=== PATIENT | female | born 1960 | race Caucasian/White ===

== ENCOUNTER → 2019-04-07 14:05 | Outpatient (CLI) | payer BC, SELFPAY ==
--- NOTE | ~2019-04-07 | XR_ITS ---
EXAMINATION: XR shoulder RT min 2V DATE: 04/07/2019 14:27 INDICATION: Right shoulder pain. TECHNIQUE: 4 views of right shoulder were obtained. COMPARISON: None. FINDINGS: Bone alignment is normal. No fracture. There is mild osteoarthritis of glenohumeral joint. Acromioclavicular joint is normal. IMPRESSION: 1. Mild glenohumeral joint osteoarthritis. Reviewed, dictated and finalized at location A. WAY ADMINISTRATIVE ENGINEER
== END ==
PROVIDERS: PCP Family Medicine; Visit Provider Physician Assistant
DX: M19.011 Primary osteoarthritis, right shoulder (principal)
CPT/HCPCS: 73030

== ENCOUNTER 2023-01-30 00:40 | Day surgery (SDC) | payer BC, SELFPAY ==
[2023-01-11 13:53] VITALS: BMI 28.0
--- NOTE | 2023-01-26 10:24 | SUR.PREOP ---
Patient called regarding upcoming procedure. Reviewed preop instructions, appointment times, and procedure prep.
[2023-01-30 09:31] VITALS: BP 121/80; PULSE 73; RESP 18; TEMP 36.1; O2SAT 100
[2023-01-30] MEDS: LACTATED RINGERS 1,000 ML 150 ML IV CONT (09:40)
--- NOTE | 2023-01-30 10:21 | WPDANESEPPF ---
Anes - Initial Pre Proc Eval Procedure: Operation Date: 01/30/23 10:30 Proposed Procedures p Screening Colonoscopy - Reji Murray MD Date/Time: 01/30/23 10:21 Surgeon: Reji Murray MD Pre Op Diagnosis: neoplasm screening Patient Data Age: 62 Gender: F Height: 1.63 m Weight: 72.5 kg Last Vital Signs Temp 36.1 C L 01/30/23 09:31 Pulse 73 01/30/23 09:31 Resp 18 01/30/23 09:31 BP 121/80 01/30/23 09:31 Pulse Ox 100 01/30/23 09:31 O2 Del Method Room Air 01/30/23 09:31 Allergies Allergy/AdvReac Type Severity Reaction Status Date / Time No Known Allergies Allergy Mild Verified 01/30/23 09:29 Home Medications Medication Instructions Recorded Confirmed Type fluoxetine 20 mg capsule 20 mg PO DAILY 04/02/19 01/11/23 History trazodone 50 mg tablet 100 mg PO QHS 09/13/20 01/11/23 History lisinopril 30 mg tablet 30 mg PO DAILY #90 tabs 06/12/22 01/11/23 Rx lamotrigine 25 mg tablet 25 mg PO DAILY 11/16/22 01/11/23 History Patient hx anesthesia problems: none Family hx anesthesia problems: none Results Review: All pre-operative results and documents have been reviewed as part of the pre-operative evaluation. [facility] Past Medical History Medical History Anxiety Hypertension Normal colonoscopy (~2006) Surgical History Surgical History Hx of appendectomy Hx of cholecystectomy Family History Family History Other Family history of Parkinson's disease Family history of coronary artery disease Family history of malignant neoplasm of breast in first degree relative Family history of pancreatic cancer Family history of rheumatoid arthritis Hypertension Social History Social History Smoking status: Never smoker Second hand tobacco smoke exposure: No Alcohol intake: current Drinks per week: 10 Substance use: never Substance use type: does not use Lack of Transportation: No Lack of Food: Never True Current Housing: I Have Housing Concerned About Future Housing: No Difficulty Paying Gas/Electric Bills: No Difficulty Paying for Meds: No Currently Unemployed: No Education: Bachelor's Degree Difficulty w/ Childcare or Family Care: No Living arrangements: with family Gender identity (if verbalized by the patient): Female Sexual Orientation (if Verbalized by the Patient): Straight or Heterosexual Spiritual care concerns: No Agree to blood products: Yes Anes - Eval Final PreProcedure Day of Procedure 01/30/23 10:21 Patient weight: overweight Heart: regular rate and rhythm Lungs: clear to auscultation Airway: Mallampati scale class II Neurological: alert and oriented Last oral intake: >/= 8 hours ASA classification: II Emergent: no Anesthetic plan: proceed Anesthesia type and monitoring: general GIVS and standard monitoring Results Review: All pre-operative results and documents have been reviewed as part of the pre-operative evaluation. Informed Consent: The patient's anesthetic plan and its attendant risks and benefits were discussed with the patient/family/POA. Questions were solicited and answers provided to the satisfaction of the patient/family/POA.
--- NOTE | 2023-01-30 10:22 | PM.HPGS ---
History of Present Illness History of Present Illness Consent: Risks, benefits, and alternatives have been discussed and questions answered. Patient agrees to proceed with procedure. Chief complaint: neoplasm screening Narrative: Shruthi Cohen is a 62 year old female Presents for screening colonoscopy. Patient's current weight appetite and bowel movements are normal. Patient denies abdominal pain. She has had no bleeding. Family history noncontributory. Review of Systems Review of Systems: Review of systems noncontributory. [facility] Past Medical History Medical History (Updated 01/30/23 @ 10:23 by Reji Murray MD) Anxiety Hypertension Normal colonoscopy (~2006) Surgical History Surgical History Hx of appendectomy Hx of cholecystectomy Family History Family History Other Family history of Parkinson's disease Family history of coronary artery disease Family history of malignant neoplasm of breast in first degree relative Family history of pancreatic cancer Family history of rheumatoid arthritis Hypertension Social History Social History Smoking status: Never smoker Second hand tobacco smoke exposure: No Alcohol intake: current Drinks per week: 10 Substance use: never Substance use type: does not use Lack of Transportation: No Lack of Food: Never True Current Housing: I Have Housing Concerned About Future Housing: No Difficulty Paying Gas/Electric Bills: No Difficulty Paying for Meds: No Currently Unemployed: No Education: Bachelor's Degree Difficulty w/ Childcare or Family Care: No Living arrangements: with family Gender identity (if verbalized by the patient): Female Sexual Orientation (if Verbalized by the Patient): Straight or Heterosexual Spiritual care concerns: No Agree to blood products: Yes Meds Home Medications and Allergies Home Medications Medication Instructions Recorded Confirmed Type fluoxetine 20 mg capsule 20 mg PO DAILY 04/02/19 01/11/23 History trazodone 50 mg tablet 100 mg PO QHS 09/13/20 01/11/23 History lisinopril 30 mg tablet 30 mg PO DAILY #90 tabs 06/12/22 01/11/23 Rx lamotrigine 25 mg tablet 25 mg PO DAILY 11/16/22 01/11/23 History Allergies Allergy/AdvReac Type Severity Reaction Status Date / Time No Known Allergies Allergy Mild Verified 01/30/23 09:29 Vital Signs Vital Signs - 24 hr 01/30/23 09:31 Temperature 97.0 F L Pulse Rate 73 Respiratory Rate 18 Blood Pressure 121/80 Pulse Oximetry 100 Oxygen Delivery Room Air Exam Narrative: Physical exam reveals patient to be alert. Vital signs stable. HEENT exam is unremarkable. Patient is anicteric. Lungs are clear to auscultation and percussion. Heart is without murmur or extra sounds. Abdomen bowel sounds are present soft nontender with no organomegaly. Digital external rectal exam normal. Assessment and Plan Assessment and plan (1) Encounter for screening colonoscopy: Code(s): Z12.11 - Encounter for screening for malignant neoplasm of colon Status: Acute Assessment and Plan: Patient presents today for screening colonoscopy. She appears to be at average risk for colon polyps. Further recommendations may be given after endoscopy.
[2023-01-30] MEDS: SIMETHICONE ORAL SUSPENSION 20 MG/0.3 ML 30 ML BOTTLE 0.6 ML IRRIGATION (11:19)
[2023-01-30 11:31] VITALS: BP 118/73; PULSE 68; RESP 23; O2SAT 98
[2023-01-30 11:35] VITALS: BP 122/67; PULSE 67; RESP 25; O2SAT 98
[2023-01-30 11:45] VITALS: BP 138/75; PULSE 65; RESP 20; O2SAT 100
== END 2023-01-30 11:53 | disposition home or self-care (01) ==
PROVIDERS: PCP Family Medicine; Visit Provider Internal Medicine Gastroenterology
PROC: 0DJD8ZZ Inspection of Lower Intestinal Tract, Via Natural or Artificial Opening Endoscopic (ICD-10-PCS; CPT 45378; principal; 2023-01-30 10:30)
DX: Z12.11 Encounter for screening for malignant neoplasm of colon (principal); D12.2 Benign neoplasm of ascending colon; K64.8 Other hemorrhoids; K57.30 Diverticulosis of large intestine without perforation or abscess without bleeding; I10 Essential (primary) hypertension; F41.9 Anxiety disorder, unspecified
CPT/HCPCS: 45381; 45380; 88305; J2704; J7120

== ENCOUNTER 2024-05-02 00:10 | Day surgery (SDC) | payer OTHER, SELFPAY ==
[2024-04-24 11:29] VITALS: BMI 25.3
--- OUTSIDE RECORDS SUMMARY | 2024-05-02 00:15 | XMS_ITS | Encounter Summary ---
Author Organization [employer] Address 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
--- OUTSIDE RECORDS SUMMARY | 2024-05-02 00:15 | XMS_ITS | Encounter Summary ---
Author Organization [employer] [facility] Address 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
--- OUTSIDE RECORDS SUMMARY | 2024-05-02 00:15 | XMS_ITS | Encounter Summary ---
Author Organization [employer] [facility] Address 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
--- OUTSIDE RECORDS SUMMARY | 2024-05-02 00:15 | XMS_ITS | Clinical Summary ---
Author Organization [facility] Address [address] [place] [address] Care Team Providers Care Evp Name Role Phone Ida Silverio MD Primary Care Provider [phone] Sarahi Sanchez MD Unavailable [phone] Allergies No known active allergies Medications ALPRAZolam (XANAX) 0.25 mg tablet Take 1 tablet (0.25 mg total) by mouth 3 (three) times a day as needed 2 Active FLUoxetine (PROzac) 20 mg capsule Take 1 capsule (20 mg total) by mouth every morning 2 Active lamoTRIgine (LaMICtal) 100 mg tablet Take 2 tablets (200 mg total) by mouth every morning 2 Active traZODone (DESYREL) 50 mg tablet Take 1 tablet (50 mg total) by mouth nightly 2 Active acetaminophen 500 mg capsuleIndicati ons:Pain Take 2 capsules (1,000 mg total) by mouth every 6 (six) hours 4 Active Additional Information Patient not taking.Reported on 06/26/2023 apixaban (ELIQUIS) 2.5 mg tablet Take 1 tablet (2.5 mg total) by mouth 2 (two) times a day for 21 days 42 tablet 4 Active Additional Information Patient not taking.Reported on 04/23/2023 lisinopriL (PRINIVIL,ZESTR IL) 30 mg tablet Take 1 tablet (30 mg total) by mouth daily 4 Active Active Problems Problem Noted Date Diagnosed Date Well woman exam with routine gynecological exam 06/27/2023 Colon polyp 03/13/2023 Hyponatremia 11/19/2021 Assessment & Plan (11/20/2021 9:06 AM CDT): P/w Na 122 with tinging in her bilateral hands and jitteriness in her legs. Symptoms resolved with 250cc NS and Na improvement to 130. Nicolasa <20, Sosm 258, Uosm 86, Cl 95, cortisol 9, TSH 3.44. Hypovolemic on exam. Did not drink water and hydrated with beer. Consistent with hypovolemic hyponatremia -IVF -Asymptomatic and Na normalized. Ok for discharged MDD (major depressive disorder) 11/19/2021 Assessment & Plan (11/19/2021 2:29 PM CDT): Cont home fluoxetine, lamotrigine, xanax PRN, and trazodone PRN Hypertension 11/19/2021 Assessment & Plan (11/19/2021 2:29 PM CDT): Cont lisinopril Alcohol abuse 11/19/2021 Assessment & Plan (11/20/2021 9:06 AM CDT): Reports drinking up to 5 beers/day. No history or current signs of withdrawal -Counseled cessation Surgical History Surgery Date Site/Laterality Comments SECTION x 2 (1996, 2000) CHOLECYSTECTOMY 02/13/1984 - 02/11/1985 COLECTOMY PARTIAL / TOTAL 02/12/2022 - 02/11/2023 Medical History Medical History Date Comments Hypertension Depression Anxiety History of panic attacks Diverticulosis Polyp of ascending colon Family History Medical History Relation Name Comments Breast cancer Father's Sister Breast cancer Maternal Grandmother Breast cancer Mother's Sister Relation Name Status Comments Father's Sister Maternal Grandmother Mother's Sister Social History Tobacco Use Types Packs/Day Years Used Date Smoking Tobacco: Former Cigarettes 1 - 1982 Passive Smoke Exposure: Past Smokeless Tobacco: Never [facility] Utilities Answer Date Recorded In the past 12 months has [employer], gas, oil, or water [employer] threatened to shut off services in your home? No 04/05/2023 Social Connection and Isolat ion Panel [NHANES] Answer Date Recorded In a typical week, how many times do you talk on the phone with family, friends, or neighbors? More than three times a week 04/05/2023 How often do you get togethe r with friends or relatives? More than three times a week 04/05/2023 How often do you attend chur ch or gnosticist services? Never 04/05/2023 Do you belong to any clubs o r organizations such as voodoo groups, unions, fraternal or athletic groups, or school groups? No 04/05/2023 How often do you attend meet ings of the clubs or organizations you belong to? Never 04/05/2023 Are you , , di vorced, , never , or living with a partner? 04/05/2023 AUDIT-C Answer Date Recorded Q1: How often do you have a drink containing alc ohol? Monthly or less 06/26/2023 Q2: How many drinks containi ng alcohol do you have on a typical day when you are drinking? 10 or more 06/26/2023 Frequency of Binge Drinking Not on file 06/12 Overall Financial Resource Strain (CARDIA) Answe r Date Recorded How hard is it for you to pa y for the very basics like food, housing, medical care, and heating? Not very hard 04/05/2023 Hunger Vital Sign Answer Date Recorded Within the past 12 months, y ou worried that your food would run out before you got the money to buy more. Never true 04/05/19 24 Within the past 12 months, t he food you bought just didn't last and you didn't have money to get more. Never true 04/05/2023 PRAPARE - Transportation Answer Date Re corded In the past 12 months, has l ack of transportation kept you from medical appointments or from getting medications? No 03/16 In the past 12 months, has l ack of transportation kept you from meetings, work, or from getting things needed for daily living? No 04/05/2023 Housing Stability Vital Sign Answer Yao e Recorded In the last 12 months, was t here a time when you were not able to pay the mortgage or rent on time? No 04/05/2023 In the last 12 months, how many places have you lived? 1 04/05/2023 In the last 12 months, was t here a time when you did not have a steady place to sleep or slept in a assisted (including now)? No 04/05/2023 Personal Safety Answer Date Recorded Have you ever been in or are you currently in a harmful physical or emotional relationship or is someone making you feel afraid or unsafe? Denies 04/04/2023 Comments No Sex and Gender Information Value Date Recorded Sex Assigned at Not on file Legal Sex Female 4:33 PM TAR POT MAN Gender Identity Not on file Sexual Orientation Not on file Obstetrics History Para Term AB IAB SAB Ectopic Multiple Livin g Live Births 2 2 2 Date Outcome GA Total Labor Labor/2nd/3rd Weight Sex Type Anes PTL Maria Victoria A1 A5 Name Clin 1995 Term M C-Sec tion Larry 2000 Term F C-Sec tiportillo King Last Filed Vital Signs Vital Sign Reading Time Taken Comments Blood Pressure 128/80 06/26/2023 11:49 AM CDT Pulse 87 04/23/2023 11:12 AM CDT Temperature 36.3 C (97.4 F) 04/23/2023 11:12 AM CDT Respiratory Rate 20 04/16/2023 12:30 PM TAR POT MAN Oxygen Saturation 100% 04/23/2023 11:12 AM CDT Inhaled Oxygen Concentration - - Weight 70.3 kg (155 lb) 06/26/2023 11:49 AM CDT Height 162.6 cm (5' 4 ) 06/26/2023 11:49 AM CDT Body Mass Index 26.61 06/26/2023 11:49 AM CDT Plan of Treatment Health Maintenance Due Date Last Done Comments Cervical Cancer Screening 1961 Colon Cancer Screening-Colonoscopy 1961 Depression Screening 1961 Hepatitis C Screening 1961 DTaP/Tdap/Td Vaccine (1 - Tdap) 1972 Hepatitis B Screening 07/05/1979 Zoster Vaccine (1 of 2) 07/05/2011 Influenza Vaccine (#1) 2023 11/25/2016, 2015 Breast Cancer Screening-Mammogram 02/20/2024 02/19/2023, 11/24/2021, 11/18/2018, Additional history exists Regular Well Visit/Exam 18-64 06/25/2024 06/26/2023 Pneumococcal vaccine <65 Aged Out No longer eligible based on patient's age to complete this topic Procedures Procedure Name Priority Date/Time Associated Diagnosis Comments SCREENING MAMMOGRAM BILATERAL W DYLAN Schedule Routine, Read Routine (OP Routine) 02/19/2023 11:27 AM TAR POT MAN Screening mammogram, encounter for from Last 3 Months or Most Recently Relevant to Health Maintenance Results * Screening Mammogram Bilateral W Dylan (02/19/2023 11:27 AM TAR POT MAN) Anatomical Region Laterality Modality Breast Bilateral Mammography Narrative 02/19/2023 11:37 AM TAR POT MAN Examination: Screening Mammogram Bilateral W Dylan: 02/19/23 Clinical: Screening mammogram, encounter for. Prior Study Comparisons: Comparison was made to the prior available relevant studies at the time of interpretation. Findings: Bilateral No significant masses, malignant type calcifications, skin thickening, nipple retraction, or significant lymphadenopathy is noted in either breast. The CAD review showed no significant findings. The breasts have scattered areas of fibroglandular density. The patient will be notified of results by letter. Impression: BI-RADS ATLAS category (overall): 1 - Negative There is no mammographic evidence of malignancy. Routine Screening Mammogram in 1 Yr is recommended for bilateral Overall Assessment: 1 - Negative us Self Screening Mammogram IMG MAMMO PROCEDURES Fi nal Result from Last 3 Months or Most Recently Relevant to Health Maintenance Insurance [employer] ACCESS [facility] Advance Directives For more information, please contact: [phone] * Full Code (Latest Code Status on File) Date Activated Date Inactivated Comments 04/04/2023 3:27 PM 04/16/2023 10:26 PM * Full Code Date Activated Date Inactivated Comments 11/19/2021 2:11 PM 11/20/2021 3:07 PM Care Teams Evp Relationship Specialty Start Date End Date Ida Silverio MD PCP - General 10/31/17 Sarahi Sanchez MD Consulting Physician Surgery 04/06/23
--- OUTSIDE RECORDS SUMMARY | 2024-05-02 00:15 | XMS_ITS | Encounter Summary ---
Author Organization [employer] Address 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
--- OUTSIDE RECORDS SUMMARY | 2024-05-02 00:15 | XMS_ITS | Encounter Summary ---
Author Organization [employer] [facility] Address 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
--- OUTSIDE RECORDS SUMMARY | 2024-05-02 00:15 | XMS_ITS | Clinical Summary ---
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 Gender Identity Not on file Sexual Orientation Not on file Plan of Treatment Health Maintenance Due Date Last Done Comments DTAP/TDAP/TD VACCINES (1 - Tdap) 1980 PAP SMEAR 1982 CERVICAL CANCER SCREENING 07/05/1991 HPV/Cotest 07/05/1991 PAP SMEAR 07/05/1991 BREAST CANCER SCREENING 2001 COLORECTAL SCREENING 2006 Colorectal Cancer Screening 2006 FIT-DNA Q 3 years 2006 FIT/FOBT Q 1 year 2006 Flex Sig/CT Colonography Q 5 years 2006 ZOSTER VACCINE (1 of 2) 07/05/2011 INFLUENZA VACCINE (#1) 2023 RSV VACCINE (60+ or ) (1 - 1-dose 75+ series) 2036 PNEUMOCOCCAL VACCINE 0-49 YEARS Aged Out No longer eligible based on patient's age to complete this topic
--- OUTSIDE RECORDS SUMMARY | 2024-05-02 00:15 | XMS_ITS | Referral Summary ---
Author Organization [facility] Address [address] [place] [address] Care Team Providers Care Elementary Principal Name Role Phone Ida Silverio MD Primary Care Provider [phone] Sarahi Sanchez MD Unavailable [phone] Allergies No known active allergies Medications ALPRAZolam [...] or current signs of withdrawal -Counseled cessation Social History Tobacco Use Types Packs/Day Years Used Date Smoking Tobacco: Former Cigarettes 1 - 1982 Passive Smoke Exposure: Past Smokeless Tobacco: Never [employer] Answer Date Recorded In the past 12 months has [employer], [employer], or water [employer] threatened to shut off services in your [...] week 04/05/2023 How often do you attend [facility] or muslim services? Never 04/05/2023 Do you belong to any clubs o r organizations such as episcopal groups, unions, fraternal or athletic groups, or [...] place to sleep or slept in a longterm (including now)? No 04/05/2023 Personal Safety Answer Date Recorded Have you ever been in or are you currently in a harmful physical or emotional relationship or is someone making you feel afraid or unsafe? 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 Gender Identity Not on file Sexual Orientation Not on file Last Filed Vital Signs Vital Sign Reading Time Taken Comments Blood Pressure 128/80 06/26/2023 11:49 AM CDT Pulse 87 04/23/2023 11:12 AM CDT Temperature 36.3 C (97.4 F) 04/23/2023 11:12 AM CDT Respiratory Rate 20 04/16/2023 12:30 PM THERAPEUTIC RECREATION LEADER Oxygen Saturation 100% 04/23/2023 11:12 AM CDT Inhaled Oxygen Concentration - - Weight 70.3 kg (155 lb) 06/26/2023 11:49 AM CDT Height 162.6 cm (5' 4 ) 06/26/2023 11:49 AM CDT Body Mass Index 26.61 06/26/2023 11:49 AM CDT Plan of Treatment Not on file Procedures Procedure Name Priority Date/Time Associated Diagnosis Comments SCREENING MAMMOGRAM BILATERAL W DYLAN Schedule Routine, Read Routine (OP Routine) 02/19/2023 11:27 AM THERAPEUTIC RECREATION LEADER Screening mammogram, encounter for from Last 3 Months or Most Recently Relevant to Health Maintenance Results * Screening Mammogram Bilateral W Dylan (02/19/2023 11:27 AM THERAPEUTIC RECREATION LEADER) Anatomical Region Laterality Modality Breast Bilateral Mammography Narrative 02/19/2023 11:37 AM THERAPEUTIC RECREATION LEADER Examination: Screening Mammogram Bilateral W Dylan: 02/19/23 [...] Most Recently Relevant to Health Maintenance Insurance Vivaty [place] Vivaty [place] [facility] Member Subscriber Plan / Payer (Ef fective 2019-Present) Name:Shruthi Cohen Relation to Subscriber:Spouse Name:ADA COHEN Date of :1960 (Home) Address: [address] [place] [address] Payer ID:[id number] (NAIC) Type: OTHER Address: [place] [phone] Advance Directives For more information, please contact: [phone] * Full Code (Latest Code Status on File) Date Activated Date Inactivated Comments 04/04/2023 3:27 PM 04/16/2023 10:26 PM * Full Code Date Activated Date Inactivated Comments 11/19/2021 2:11 PM 11/20/2021 3:07 PM Care Teams Elementary Principal Relationship Specialty Start Date End Date Ida Silverio MD PCP - General 10/31/17 Sarahi Sanchez MD Consulting Physician Surgery 04/06/23
--- OUTSIDE RECORDS SUMMARY | 2024-05-02 00:15 | XMS_ITS | Encounter Summary ---
Author Organization [facility] Address [address] [place] [address] Care Team Providers Care Pastoral [employer] Professor Name Role Phone Unavailable Primary Care Provider Unavailabl e Encounter Details Date Type Department Care Team (Late st Contact Info) Description 04/21/2000 Outpatient Historical [facility] Grady Chua MD 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
[2024-05-02 08:51] VITALS: BP 127/88; PULSE 76; RESP 18; TEMP 36.4; O2SAT 100
[2024-05-02] MEDS: LACTATED RINGERS 1,000 ML 150 ML IV CONT (09:00)
--- NOTE | 2024-05-02 09:26 | P.PNAN_ITS ---
Anes - Initial Pre Proc Eval Procedure: Operation Date: 05/02/24 10:00 Proposed Procedures p Screening Colonoscopy - Raz Jernigan MD Date/Time: 05/02/24 09:26 Surgeon: Raz Jernigan MD Pre Op Diagnosis: Hx of polyps Patient Data Age: 63 Gender: F Height: 1.63 m Weight: 68.2 kg Last Vital Signs Temp 97.5 F L 05/02/24 08:51 Pulse 76 05/02/24 08:51 Resp 18 05/02/24 08:51 BP 127/88 05/02/24 08:51 Pulse Ox 100 05/02/24 08:51 Allergies Allergy/AdvReac Type Severity Reaction Status Date / Time No Known Allergies Allergy Mild Verified 05/02/24 08:44 Home Medications ?Medication ?Instructions ?Recorded ?Confirmed ?Type fluoxetine 20 mg capsule 20 mg PO DAILY 04/02/19 05/02/24 History trazodone 50 mg tablet 100 mg PO QHS 09/13/20 05/02/24 History lamotrigine 25 mg tablet 100 mg PO DAILY 11/16/22 05/02/24 History lisinopril 30 mg tablet 30 mg PO DAILY #90 tabs 07/11/23 05/02/24 Rx sodium sul 1.479 gram-potas ch See Rx Instructions PO PER PKG DIR 04/11/24 05/02/24 Rx 0.188 gram-magnes sul 0.225 gram #24 tabs tablet (Sutab) ascorbate calcium (vitamin C) 500 500 mg PO DAILY 04/24/24 05/02/24 History mg tablet calcium carbonate 300 mg PO DAILY 04/24/24 05/02/24 History cholecalciferol (vitamin D3) 125 5,000 unit PO DAILY 04/24/24 05/02/24 History mcg (5,000 unit) tablet multivitamin 1 tablet PO DAILY 04/24/24 05/02/24 History Patient hx anesthesia problems: none Family hx anesthesia problems: none Results Review: All pre-operative results and documents have been reviewed as part of the pre- operative evaluation. [facility] Past Medical History Medical History Normal colonoscopy (~2006) Anxiety Hypertension Surgical History Surgical History Hx of appendectomy Hx of cholecystectomy Family History Family History Other Family history of Parkinson's disease Family history of coronary artery disease Family history of malignant neoplasm of breast in first degree relative Family history of pancreatic cancer Family history of rheumatoid arthritis Hypertension Social History Social History Smoking status: Never smoker Second hand tobacco smoke exposure: No Alcohol intake: current Drinks per week: 14 Alcohol use details: Wine/beer Substance use: never Substance use type: does not use Lack of Transportation: No Lack of Food: Never True Current Housing: I Have Housing Concerned About Future Housing: No Difficulty Paying Gas/Electric Bills: No Difficulty Paying for Meds: No Currently Unemployed: No Education: Bachelor's Degree Difficulty w/ Childcare or Family Care: No Living arrangements: with family Gender identity (if verbalized by the patient): Female Sexual Orientation (if Verbalized by the Patient): Straight or Heterosexual Spiritual care concerns: No Agree to blood products: Yes Anes - Eval Final PreProcedure Day of Procedure 05/02/24 09:26 Patient weight: normal Heart: regular rate and rhythm Lungs: clear to auscultation Airway: Mallampati scale class II Neurological: alert and oriented Last oral intake: >/= 8 hours ASA classification: II Emergent: no Anesthetic plan: proceed Anesthesia type and monitoring: general GIVS and standard monitoring Results Review: All pre-operative results and documents have been reviewed as part of the pre- operative evaluation. Informed Consent: The patient's anesthetic plan and its attendant risks and benefits were discussed with the patient/family/POA. Questions were solicited and answers provided to the satisfaction of the patient/family/POA.
--- NOTE | 2024-05-02 09:49 | P.HP_ITS ---
H&P: HPI History of Present Illness Date/Time: 05/02/24 09:49 Chief Complaint: history of colon polyps Narrative: this patient underwent hemicolectomy in March 2023 for large ascending colon polyp found during screening colonoscopy. This is Her 1st colonoscopy after resection. she is totally asymptomatic. Her postop course was complicated by prolonged ileus. Review of Systems Review of Systems: All systems reviewed & are unremarkable except as noted in HPI and below PMFSH Past Medical History Medical History Normal colonoscopy (~2006) Anxiety Hypertension Surgical History Surgical History Hx of appendectomy Hx of cholecystectomy Family History Family History Other Family history of Parkinson's disease Family history of coronary artery disease Family history of malignant neoplasm of breast in first degree relative Family history of pancreatic cancer Family history of rheumatoid arthritis Hypertension Social History Social History Smoking status: Never smoker Second hand tobacco smoke exposure: No Alcohol intake: current Drinks per week: 14 Alcohol use details: Wine/beer Substance use: never Substance use type: does not use Lack of Transportation: No Lack of Food: Never True Current Housing: I Have Housing Concerned About Future Housing: No Difficulty Paying Gas/Electric Bills: No Difficulty Paying for Meds: No Currently Unemployed: No Education: Bachelor's Degree Difficulty w/ Childcare or Family Care: No Living arrangements: with family Gender identity (if verbalized by the patient): Female Sexual Orientation (if Verbalized by the Patient): Straight or Heterosexual Spiritual care concerns: No Agree to blood products: Yes Meds Home Medications and Allergies Home Medications ?Medication ?Instructions ?Recorded ?Confirmed ?Type fluoxetine 20 mg capsule 20 mg PO DAILY 04/02/19 05/02/24 History trazodone 50 mg tablet 100 mg PO QHS 09/13/20 05/02/24 History lamotrigine 25 mg tablet 100 mg PO DAILY 11/16/22 05/02/24 History lisinopril 30 mg tablet 30 mg PO DAILY #90 tabs 07/11/23 05/02/24 Rx sodium sul 1.479 gram-potas ch See Rx Instructions PO PER PKG DIR 04/11/24 05/02/24 Rx 0.188 gram-magnes sul 0.225 gram #24 tabs tablet (Sutab) ascorbate calcium (vitamin C) 500 500 mg PO DAILY 04/24/24 05/02/24 History mg tablet calcium carbonate 300 mg PO DAILY 04/24/24 05/02/24 History cholecalciferol (vitamin D3) 125 5,000 unit PO DAILY 04/24/24 05/02/24 History mcg (5,000 unit) tablet multivitamin 1 tablet PO DAILY 04/24/24 05/02/24 History Allergies Allergy/AdvReac Type Severity Reaction Status Date / Time No Known Allergies Allergy Mild Verified 05/02/24 08:44 Vital Signs Vital Signs - 24 hr 05/02/24 08:51 Temperature 97.5 F L Pulse Rate 76 Respiratory Rate 18 Blood Pressure 127/88 Pulse Oximetry 100 Exam Const: General: cooperative and healthy appearing Resp: Effort & Inspection: normal respiratory effort and able to speak in com plete sentences Auscultation: clear to auscultation bilaterally Cardio: Rate: regular rate Rhythm: regular rhythm GI: Inspection: normal to inspection GI Palp: No No hepatosplenomegaly present Auscultation: normal bowel sounds Rectal Exam: deferred Skin: General skin exam: normal color Psych: Appearance: grossly normal Mental Status: mental status grossly normal Assessment and Plan Assessment and plan (1) Polyp of ascending colon: Code(s): K63.5 - Polyp of colon Status: Acute
[2024-05-02] MEDS: SIMETHICONE ORAL SUSPENSION 20 MG/0.3 ML 30 ML BOTTLE 0.6 ML IRRIGATION (09:59)
[2024-05-02 10:09] VITALS: BP 132/80; PULSE 67; RESP 16; O2SAT 100
[2024-05-02 10:19] VITALS: BP 136/84; PULSE 70; RESP 18; O2SAT 100
[2024-05-02 10:29] VITALS: BP 153/95; PULSE 66; RESP 22; O2SAT 100
== END 2024-05-02 10:44 | disposition home or self-care (01) ==
PROVIDERS: PCP Family Medicine; Referring Provider Internal Medicine Gastroenterology; Visit Provider Internal Medicine Gastroenterology
PROC: 0DJD8ZZ Inspection of Lower Intestinal Tract, Via Natural or Artificial Opening Endoscopic (ICD-10-PCS; CPT 45378; principal; 2024-05-02 10:00)
DX: Z12.11 Encounter for screening for malignant neoplasm of colon (principal); K57.30 Diverticulosis of large intestine without perforation or abscess without bleeding; Z98.0 Intestinal bypass and anastomosis status; Z90.49 Acquired absence of other specified parts of digestive tract; Z86.0100 Personal history of colon polyps, unspecified
CPT/HCPCS: 45378; J2003; J2704; J7120